=== PATIENT | male | born 2000 | race Caucasian/White ===

== ENCOUNTER 2020-10-24 18:46 | Emergency (ER) | payer OTHER, SELFPAY ==
[2020-10-24 18:51] VITALS: BP 106/61; PULSE 112; RESP 20; TEMP 37.1; O2SAT 95; BMI 19.5
[2020-10-24] MEDS: EPINEPHrine 1 mg/mL INJ 0.5 MG IM (19:02)
--- NOTE | 2020-10-24 19:03 | W.ED.ALLEREA ---
HPI - Allergic Reaction General: Chief complaint: Allergic Reaction Stated complaint: anaphylaxis Time Seen by Provider: 10/24/20 18:56 Source: patient Mode of arrival: ambulatory Limitations: no limitations History of Present Illness: HPI narrative: 20-year-old male who states that he exposed to a dog scratch an hour ago states that started having difficulty breathing and a rash to his body and some swelling. Patient called EMS and then decided not to take EMS here but states his symptoms worsen. He does have rash to his full body he states he has some dyspnea. He also has some swelling to his face. He denies any history of allergic reactions the past. He is never anything like this before. Denies any worsening improving factors. Associated symptoms: Deny abdominal pain, nausea or vomiting Review of Systems Const: Denies: fever(s), chills, body aches or change in appetite Eyes: Denies: blurry vision or eye discomfort ENMT: Denies: throat pain or dental pain Card: Denies: chest pain Resp: Reports: dyspnea GI: Denies: abdominal pain, nausea, vomiting or diarrhea : Denies: dysuria Musc: Denies: neck pain or back pain Skin/Breast: Reports: rash and pruritus Neuro: Denies: headache(s) Psych: Denies: depression Roland/Lymph: Denies: easy bruising All/Imm: Denies: urticaria Physical Exam Const: COMMON NORMALS: patient oriented x3 and healthy appearing GENERAL APPEARANCE: in distress HENMT: COMMON NORMALS: normocephalic and atraumatic HEAD & SCALP: normocephalic and atraumatic OTHER: Slight swelling around his lips and eyelids no posterior pharynx swelling Eye: COMMON NORMALS: Equal, round and reactive pupils present and EOMs intact bilaterally PUPIL: Yes Equal, round and reactive pupils present Neck/C-Spine: COMMON NORMALS: full ROM and supple Chest: COMMONS NORMALS: normal inspection of the chest and normal palpation of entire chest wall Resp: COMMON NORMALS: normal respiratory effort, No retractions and No use of accessory muscles OTHER: Slight wheezing Cardio: COMMON NORMALS: regular rate, regular rhythm and No murmurs present (Cardio) RATE: regular rate RHYTHM: regular rhythm GI: COMMON NORMALS: Normal to inspection, nondistended, normoactive bowel sounds present, Soft to palpation, non-tender and no masses PALPATION: Yes Soft to palpation Extremity: COMMON NORMALS: normal to inspection and full ROM Neuro: COMMON NORMALS: patient oriented x3, moves all extremities and no focal motor deficits Psych: COMMON NORMALS: mental status grossly normal, Normal thought process present and cooperative THOUGHT PROCESS: Normal thought process present Skin: COMMON NORMALS: no wounds Course Vital Signs: Vital signs: Vital Signs Temperature 98.7 F 10/24/20 18:51 Pulse Rate 103 H 10/24/20 21:05 Respiratory Rate 15 10/24/20 21:05 Blood Pressure 123/74 10/24/20 21:05 Pulse Oximetry 97 10/24/20 21:05 MDM - Allergic Reaction MDM Narrative: Medical decision making narrative: Patient presents with an allergic reaction with urticaria. He is much improved here with epinephrine and I observed him and he had no return of his symptoms. He is stable for discharge will place him on EpiPen at home. He is return if worsening. He understands agrees to plan. Discharge Plan Discharge Patient Disposition: Home Clinical Impression: Allergic reaction Qualifiers: Encounter type: initial encounter Qualified Code(s): T78.40XA - Allergy, unspecified, initial encounter Condition: Stable Prescriptions: New EpiPen 2-Floyd 0.3 mg/0.3 mL auto-injector 0.3 mg IM Q20M PRN (Reason: anaphylaxis) Qty: 1 RF: 0 Discharge Orders: Discharge ED (Routine); Ordered 10/24/20 Ordered By: Ron Cormier Referrals: Ameya Lehman MD [Primary Care Provider] - Discharge Diet: Advance as tolerated Discharge Activity: Resume usual activity Patient Instructions: Allergic Reaction Coding Level of Care Code ED Angle Shearer for Edithg Fwd Exam Comprehensive
[2020-10-24] MEDS: famotidine 20 mg/2 mL INJ 40 MG IVP (19:05)
[2020-10-24] MEDS: diphenhydrAMINE 50 mg/mL SDV 1mL IVP (19:12)
[2020-10-24 19:14] VITALS: BP 124/67; PULSE 108; RESP 17; O2SAT 99
[2020-10-24 20:03] VITALS: BP 137/76; PULSE 96; RESP 21; O2SAT 98
[2020-10-24 20:32] VITALS: BP 128/63; PULSE 81; RESP 25; O2SAT 96
[2020-10-24 21:04] VITALS: BP 123/74; PULSE 109; RESP 14; O2SAT 98
[2020-10-24 21:05] VITALS: BP 123/74; PULSE 103; RESP 15; O2SAT 97
== END 2020-10-24 21:05 | disposition home or self-care (01) ==
PROVIDERS: Emergency Provider Emergency Medicine; Family Provider Family Medicine; PCP Family Medicine
DX: T78.40XA Allergy, unspecified, initial encounter (principal); L50.9 Urticaria, unspecified; X58.XXXA Exposure to other specified factors, initial encounter
CPT/HCPCS: 96372; 96374; 96375; 99284; J0171; J1200; J2930; J3490